=== PATIENT | male | born 1960 | race Caucasian/White ===

== ENCOUNTER 2018-09-01 17:43 | Emergency (ER) | payer MEDICAID ==
[~2018-09-01] VITALS: Ht 172.7 cm; Wt 78.0 kg
[~2018-09-01 17:43] MED LIST: CYCL-1 PO; ONDA4TAB12 PO
[2018-09-01 18:22] VITALS: BP 147/82
[2018-09-01] MEDS ORDERED: SULF1TAB49 PO (20:11)
[2018-09-01] MEDS ORDERED: MUPI22OI30 TOP (20:11)
== END 2018-09-01 20:23 | disposition home or self-care (01) ==
LOC: ER 17:43
DX: L08.9 Local infection of the skin and subcutaneous tissue, unspecified (principal); E11.622 Type 2 diabetes mellitus with other skin ulcer; L98.498 Non-pressure chronic ulcer of skin of other sites with other specified severity; E11.9 Type 2 diabetes mellitus without complications; F12.90 Cannabis use, unspecified, uncomplicated; Z98.890 Other specified postprocedural states
CPT/HCPCS: 99283

== ENCOUNTER 2019-05-19 14:01 | Emergency (ER) | payer MEDICAID ==
[~2019-05-19] VITALS: Ht 175.3 cm; Wt 84.0 kg
[2019-05-19 14:08] VITALS: BP 154/92
[2019-05-19] MEDS ORDERED: DOXY100C2 PO (14:54)
== END 2019-05-19 15:40 | disposition home or self-care (01) ==
LOC: ER 14:02
DX: L08.9 Local infection of the skin and subcutaneous tissue, unspecified (principal); E11.9 Type 2 diabetes mellitus without complications; F12.90 Cannabis use, unspecified, uncomplicated; Z98.890 Other specified postprocedural states; Z79.899 Other long term (current) drug therapy
CPT/HCPCS: 99283

== ENCOUNTER 2019-07-11 11:03 | Emergency (ER) | payer MEDICAID ==
[~2019-07-11] VITALS: Ht 175.3 cm; Wt 99.1 kg
[2019-07-11 11:20] VITALS: BP 156/96
[2019-07-11] MEDS ORDERED: ketorolac trometh inj. 60 MG/2 ML VIAL IM ONE (13:00)
[2019-07-11] MEDS ORDERED: acetaminophen 325mg tablet PO ONE (13:00)
[2019-07-11] MEDS ORDERED: CYCL-1 PO (13:01)
[2019-07-11] MEDS ORDERED: HYDR-3965 PO (13:01)
[2019-07-11] MEDS ORDERED: LIDO700A32 TOP (13:01)
== END 2019-07-11 13:21 | disposition home or self-care (01) ==
LOC: ER 11:04
DX: M54.41 Lumbago with sciatica, right side (principal); E11.9 Type 2 diabetes mellitus without complications; F12.90 Cannabis use, unspecified, uncomplicated; Z98.890 Other specified postprocedural states; Z79.899 Other long term (current) drug therapy
CPT/HCPCS: 96372; 99283; J1885

== ENCOUNTER 2019-10-18 02:30 | Emergency (ER) | payer MEDICAID ==
[~2019-10-18] VITALS: Ht 172.7 cm; Wt 86.4 kg
[~2019-10-18 02:30] MED LIST changes: +LIDO700A32 TOP
[2019-10-18 02:32] VITALS: BP 143/84
== END 2019-10-18 03:20 | disposition home or self-care (01) ==
LOC: ER 02:31
DX: S60.051A Contusion of right little finger without damage to nail, initial encounter (principal); E11.9 Type 2 diabetes mellitus without complications; F12.90 Cannabis use, unspecified, uncomplicated; Z98.890 Other specified postprocedural states; Z56.0 Unemployment, unspecified; Y04.8XXA Assault by other bodily force, initial encounter; Y93.89 Activity, other specified; Y92.89 Other specified places as the place of occurrence of the external cause; Y99.8 Other external cause status
CPT/HCPCS: 29130; 73140; 99283

== ENCOUNTER 2022-08-08 11:51 | Emergency (ER) | payer MEDICAID ==
[~2022-08-08] VITALS: Ht 174 cm; Wt 99.0 kg
[2022-08-08 13:37] VITALS: BP 161/94
[2022-08-08] MEDS ORDERED: MUPI22OI30 TOP (15:18)
[2022-08-08] MEDS ORDERED: CEPH250T PO (15:18)
== END 2022-08-08 16:26 | disposition home or self-care (01) ==
LOC: ER 16:10
DX: S90.822A Blister (nonthermal), left foot, initial encounter (principal); S90.821A Blister (nonthermal), right foot, initial encounter; L08.89 Other specified local infections of the skin and subcutaneous tissue; E11.9 Type 2 diabetes mellitus without complications; F12.90 Cannabis use, unspecified, uncomplicated; Z98.890 Other specified postprocedural states; Z79.899 Other long term (current) drug therapy; X58.XXXA Exposure to other specified factors, initial encounter; Y93.89 Activity, other specified; Y92.89 Other specified places as the place of occurrence of the external cause; Y99.8 Other external cause status
CPT/HCPCS: 99283

== ENCOUNTER 2025-08-20 12:38 | Emergency (ER) | payer SELFPAY ==
[~2025-08-20] VITALS: Ht 172.7 cm; Wt 88.0 kg
[~2025-08-20 12:38] MED LIST changes: +LIDO-52 TOP; -LIDO700A32 TOP; +ONDA-243 PO; -ONDA4TAB12 PO
[2025-08-20 12:49] VITALS: BP 147/88; PULSE 83; RESP 15; TEMP 98.7; O2SAT 98
[2025-08-21] MEDS ORDERED: SULF1TAB49 PO (10:10)
[2025-08-21] MEDS ORDERED: CEPH-585 PO (10:10)
== END 2025-08-20 15:01 | disposition left against medical advice (07) ==
LOC: ER 12:39
DX: M79.642 Pain in left hand (principal); M79.641 Pain in right hand; Z53.21 Procedure and treatment not carried out due to patient leaving prior to being seen by health care provider
CPT/HCPCS: 99281